=== PATIENT | male | born 1960 | race Caucasian/White ===

== ENCOUNTER 2022-10-19 16:37 | Inpatient (IN) | payer OTHER ==
[2022-10-19] MEDS ORDERED: IPRATROPIUM-ALBUTEROL 3 ML NEB INHALATION STA (16:53)
--- NOTE | 2022-10-19 17:00 | ED ---
SOB HPI - General Chief Complaint: Shortness of Breath Stated Complaint: SOB Time Seen by Provider: 10/19/22 16:44 Source: patient, RN notes reviewed Mode of arrival: ambulatory Limitations: no limitations - History of Present Illness Initial Comments: This is a 62-year-old male who presents to the emergency department for difficulty breathing. Patient states that he started to notice problems with this about a year ago, however they were not severe. He also noticed that the difficulty breathing would become severe with exertion. 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 He did start to use an ckyq-hyd-twfatfx Primatene inhaler, which he found beneficial. He quit smoking cold turkey in March. He had previously been smoking 2 packs a day for 40 years. He then started to noticed that the shortness of breath started to increase when he was sleeping. He would have to wake up in the middle of the night and use the Primatene inhaler. Over the last 3 weeks, it has gotten much worse and he is waking up several times each night. Last night was the worst night yet, prompting him to come to the emergency department today. He is waking up almost every hour to use the Primatene inhaler. Denies any chest pain. He did start smoking again yesterday. Breathing is much worse when laying flat, and he has to sit up when he is sleeping. He is not on oxygen at home, however he was put on oxygen in triage for low oxygen saturation. Denies any associated chest pain. He does have minor coughing. States that when he uses the Primatene inhaler, he feels like he can take a deeper breath in, however he cannot blow it out. Denies any weight gain or swelling in any of the extremities. He is never been officially diagnosed with COPD, but believes that he probably has it. Denies any fevers, chills, sore throat, chest pain, palpitations, abdominal pain, nausea, vomiting, diarrhea, back pain, or headaches. MD Complaint: shortness of breath, cough Onset/Timin -: week(s) Treatments Prior to Arrival: none - Related Data Home Oxygen Therapy: No Home Medications Medication Instructions Recorded Confirmed Aspirin EC [Ecotrin Low Dose] 81 mg PO DAILY 10/19/22 10/19/22 Previous Rx's Medication Instructions Recorded Ibuprofen [Motrin] 800 mg PO Q6HR PRN #30 tab 11/26/13 Allergies Allergy/AdvReac Type Severity Reaction Status Date / Time No Known Allergies Allergy Verified 10/19/22 19:27 Review of Systems ROS Statement: Those systems with pertinent positive or pertinent negative responses have been documented in the HPI. ROS Other: All systems not noted in ROS Statement are negative. Past Medical History Past Medical History: No Reported History History of Any Multi-Drug Resistant Organisms: None Reported Past Surgical History: Appendectomy Past Psychological History: No Psychological Hx Reported Smoking Status: Current every day smoker Past Alcohol Use History: None Reported Past Drug Use History: None Reported General Exam Limitations: no limitations General appearance: alert, in no apparent distress Head exam: Present: atraumatic, normocephalic, normal inspection Respiratory exam: Present: wheezes, decreased breath sounds, prolonged expiratory Cardiovascular Exam: Present: normal rhythm, tachycardia GI/Abdominal exam: Present: soft, normal bowel sounds. Absent: distended, te nderness, guarding, rebound, rigid Extremities exam: Absent: pedal edema Neurological exam: Present: alert, oriented X3, CN II-XII intact Psychiatric exam: Present: normal affect, normal mood Skin exam: Present: warm, dry, intact, normal color. Absent: rash Course Vital Signs 10/19/22 10/19/22 10/19/22 16:39 17:49 17:54 Temperature 97.6 F 98.5 F Pulse Rate 122 H 112 H 112 H Respiratory 28 H 22 Rate Blood Pressure 200/117 170/115 O2 Sat by Pulse 91 L 94 L Oximetry 10/19/22 10/19/22 17:59 19:19 Temperature Pulse Rate 116 H 103 H Respiratory 21 Rate Blood Pressure 164/110 O2 Sat by Pulse 91 L Oximetry Medical Decision Making - Medical Decision Making This is a 62-year-old male who presents to the emergency department for difficulty breathing. Was pt. sent in by a medical professional or institution? @ -No Did you speak to anyone other than the patient for history? @ -His daughter Did you review nursing and triage notes? @ -Yes, and I agree, it is accurate with regards to the patient's symptoms. Were old charts reviewed? @ -No Differential Diagnosis? @ -Differential Dyspnea: Coronary syndrome, arrhythmia, tamponade, asthma, COPD, pulmonary embolism, pneumonia, pneumothorax, pulmonary effusion, anaphylaxis, diabetic ketoacidosis, flailed chest, pulmonary contusion, diaphragmatic rupture, anemia, neuromuscular, this is not meant to be an all-inclusive list. EKG interpreted by me (3pts min.)? @ -Sinus tachycardia. Left bundle branch block. Ventricular rate 114 bpm, ID interval 129 ms, QRS duration 165 ms, QTC 438 ms. X-rays interpreted by me (1pt min.)? @ -Chest x-ray obtained, my interpretation identifies no localized consolidations or infiltrates. There is interstitial prominence. What testing was considered but not performed? (CT, X-rays, U/S, labs)? Why? @ -None What meds were considered but not given? Why? @ -None Did you discuss the management of the patient with other professionals? @ -Yes, Dr. Doss who accepts the patient for admission. Did you reconcile home meds? @ -Yes Was smoking cessation discussed for >3mins.? @ -I discussed smoking cessation for greater than 3 minutes. The risk of smoking were discussed with the patient including but not limited to risks of cancer, stroke, coronary artery disease and COPD. Also discussed with patient were multiple methods of quitting smoking. Lastly we discussed the financial cost of smoking. Was critical care preformed (if so, how long)? @ -No Were there social determinants of health that impacted care today? How? (Homelessness, low income, unemployed, alcoholism, drug addiction, transportation, low edu. Level, literacy, decrease access to med. care, custodial, rehab)? @ -Yes, patient does not have medical insurance, which has been decreasing his access to healthcare over the last couple of years and made him very hesitant to come to the hospital today. Was there de-escalation of care discussed even if they declined? (Discuss DNR or withdrawal of care, Hospice)? @ -No What co-morbidities impacted this encounter? (DM, HTN, Smoking, COPD, CAD, Cancer, CVA, Hep., AIDS, mental health diagnosis, sleep apnea, morbid obesity)? @ -Smoking Was patient admitted / discharged? @ -Admitted. Lab work obtained and found to be nonactionable. Patient placed on 4 L of oxygen via nasal cannula for low oxygen saturation in triage. In triage, the patient had an oxygen saturation in the high 80s to 90% on room air. While on 4 L, he was maintaining an oxygen saturation of 92-94%. Chest x-ray consistent with chronic changes such as COPD. Patient given a DuoNeb breathing treatment with no improvement in symptoms. Patient likely has a long-standing history of COPD or other chronic lung disease that has gone untreated for quite some time. Patient admitted to medicine for further management and pulmonology consultation. Patient does voice concern over not having insurance. Social work consult placed to discuss this with the patient. Undiagnosed new problem with uncertain prognosis? @ -None Drug Therapy requiring intensive monitoring for toxicity (Heparin, Nitro, Insulin, Cardizem)? @ -None Were any procedures done? @ -None Diagnosis/symptom? @ -Dyspnea, COPD Acute, or Chronic, or Acute on Chronic? @ -Acute Uncomplicated (without systemic symptoms) or Complicated (systemic symptoms)? @ -Complicated Side effects of treatment? @ -None Exacerbation, Progression, or Severe Exacerbation] @ -Not applicable Poses a threat to life or bodily function? @ -Yes This case was discussed in detail with the attending ED physician, Dr. Valdez. Presentation, findings, and treatment plan discussed in detail as well. - Lab Data Result diagrams: 10/19/22 17:20 10/19/22 17:20 Lab Results 10/19/22 10/19/22 10/19/22 Range/Units 17:20 17:20 17:20 WBC 9.3 (3.8-10.6) k/uL RBC 5.02 (4.30-5.90) m/uL Hgb 15.8 (13.0-17.5) gm/dL Hct 45.3 (39.0-53.0) % MCV 90.3 (80.0-100.0) fL MCH 31.5 (25.0-35.0) pg MCHC 34.9 (31.0-37.0) g/dL RDW 12.6 (11.5-15.5) % Plt Count 258 (150-450) k/uL MPV 7.9 Neutrophils % 58 % Lymphocytes % 23 % Monocytes % 6 % Eosinophils % 10 % Basophils % 1 % Neutrophils # 5.4 (1.3-7.7) k/uL Lymphocytes # 2.1 (1.0-4.8) k/uL Monocytes # 0.6 (0-1.0) k/uL Eosinophils # 1.0 H (0-0.7) k/uL Basophils # 0.1 (0-0.2) k/uL PT 11.2 (9.0-12.0) sec INR 1.1 (<1.2) APTT 23.1 (22.0-30.0) sec D-Dimer 0.30 (<0.60) mg/L FEU VBG pH (7.31-7.41) VBG pCO2 (37-51) mmHg VBG HCO3 (24-28) mmol/L Sodium 139 (137-145) mmol/L Potassium 4.1 (3.5-5.1) mmol/L Chloride 100 (98-107) mmol/L Carbon Dioxide 33 H (22-30) mmol/L Anion Gap 6 mmol/L BUN 16 (9-20) mg/dL Creatinine 0.81 (0.66-1.25) mg/dL Est GFR (CKD-EPI)AfAm >90 (>60 ml/min/1.73 sqM) Est GFR (CKD-EPI)NonAf >90 (>60 ml/min/1.73 sqM) Glucose 119 H (74-99) mg/dL Plasma Lactic Acid Fabricio (0.7-2.0) mmol/L Calcium 9.0 (8.4-10.2) mg/dL Total Bilirubin 0.7 (0.2-1.3) mg/dL AST 22 (17-59) U/L ALT 18 (4-49) U/L Alkaline Phosphatase 70 (38-126) U/L Troponin I (0.000-0.034) ng/mL NT-Pro-B Natriuret Pep pg/mL Total Protein 7.7 (6.3-8.2) g/dL Albumin 4.2 (3.5-5.0) g/dL 10/19/22 10/19/22 10/19/22 Range/Units 17:20 17:20 17:20 WBC (3.8-10.6) k/uL RBC (4.30-5.90) m/uL Hgb (13.0-17.5) gm/dL Hct (39.0-53.0) % MCV (80.0-100.0) fL MCH (25.0-35.0) pg MCHC (31.0-37.0) g/dL RDW (11.5-15.5) % Plt Count (150-450) k/uL MPV Neutrophils % % Lymphocytes % % Monocytes % % Eosinophils % % Basophils % % Neutrophils # (1.3-7.7) k/uL Lymphocytes # (1.0-4.8) k/uL Monocytes # (0-1.0) k/uL Eosinophils # (0-0.7) k/uL Basophils # (0-0.2) k/uL PT (9.0-12.0) sec INR (<1.2) APTT (22.0-30.0) sec D-Dimer (<0.60) mg/L FEU VBG pH (7.31-7.41) VBG pCO2 (37-51) mmHg VBG HCO3 (24-28) mmol/L Sodium (137-145) mmol/L Potassium (3.5-5.1) mmol/L Chloride (98-107) mmol/L Carbon Dioxide (22-30) mmol/L Anion Gap mmol/L BUN (9-20) mg/dL Creatinine (0.66-1.25) mg/dL Est GFR (CKD-EPI)AfAm (>60 ml/min/1.73 sqM) Est GFR (CKD-EPI)NonAf (>60 ml/min/1.73 sqM) Glucose (74-99) mg/dL Plasma Lactic Acid Fabricio 1.0 (0.7-2.0) mmol/L Calcium (8.4-10.2) mg/dL Total Bilirubin (0.2-1.3) mg/dL AST (17-59) U/L ALT (4-49) U/L Alkaline Phosphatase (38-126) U/L Troponin I 0.013 (0.000-0.034) ng/mL NT-Pro-B Natriuret Pep 770 pg/mL Total Protein (6.3-8.2) g/dL Albumin (3.5-5.0) g/dL 10/19/22 Range/Units 17:20 WBC (3.8-10.6) k/uL RBC (4.30-5.90) m/uL Hgb (13.0-17.5) gm/dL Hct (39.0-53.0) % MCV (80.0-100.0) fL MCH (25.0-35.0) pg MCHC (31.0-37.0) g/dL RDW (11.5-15.5) % Plt Count (150-450) k/uL MPV Neutrophils % % Lymphocytes % % Monocytes % % Eosinophils % % Basophils % % Neutrophils # (1.3-7.7) k/uL Lymphocytes # (1.0-4.8) k/uL Monocytes # (0-1.0) k/uL Eosinophils # (0-0.7) k/uL Basophils # (0-0.2) k/uL PT (9.0-12.0) sec INR (<1.2) APTT (22.0-30.0) sec D-Dimer (<0.60) mg/L FEU VBG pH 7.35 (7.31-7.41) VBG pCO2 61 H (37-51) mmHg VBG HCO3 32 H (24-28) mmol/L Sodium (137-145) mmol/L Potassium (3.5-5.1) mmol/L Chloride (98-107) mmol/L Carbon Dioxide (22-30) mmol/L Anion Gap mmol/L BUN (9-20) mg/dL Creatinine (0.66-1.25) mg/dL Est GFR (CKD-EPI)AfAm (>60 ml/min/1.73 sqM) Est GFR (CKD-EPI)NonAf (>60 ml/min/1.73 sqM) Glucose (74-99) mg/dL Plasma Lactic Acid Fabricio (0.7-2.0) mmol/L Calcium (8.4-10.2) mg/dL Total Bilirubin (0.2-1.3) mg/dL AST (17-59) U/L ALT (4-49) U/L Alkaline Phosphatase (38-126) U/L Troponin I (0.000-0.034) ng/mL NT-Pro-B Natriuret Pep pg/mL Total Protein (6.3-8.2) g/dL Albumin (3.5-5.0) g/dL - Radiology Data Radiology results: report reviewed, image reviewed Disposition Clinical Impression: Shortness of breath, COPD with exacerbation Disposition: ADMITTED IP TO THIS HOSP
[2022-10-19 17:32] LABS: Basophils # (A) 0.1 k/uL (0-0.2); Basophils % (A) 1 %; Eosinophils % (A) 10 %; HCT 45.3 % (39.0-53.0); HGB 15.8 gm/dL (13.0-17.5); Lymphocytes # (A) 2.1 k/uL (1.0-4.8); Lymphocytes % (A) 23 %; MCH 31.5 pg (25.0-35.0); MCHC 34.9 g/dL (31.0-37.0); MCV 90.3 fL (80.0-100.0); Mean Platelet Volume 7.9; Monocytes # (A) 0.6 k/uL (0-1.0); Monocytes % (A) 6 %; Neutrophils # (A) 5.4 k/uL (1.3-7.7); Neutrophils % (A) 58 %; Platelet Count 258 k/uL (150-450); RBC 5.02 m/uL (4.30-5.90); RDW 12.6 % (11.5-15.5); WBC 9.3 k/uL (3.8-10.6)
[2022-10-19 17:37] LABS: VBG PH 7.35 (7.31-7.41)
--- NOTE | 2022-10-19 17:37 | XR ---
EXAMINATION TYPE: XR chest 2V DATE OF EXAM: 10/19/2022 COMPARISON: NONE HISTORY: Difficulty breathing TECHNIQUE: Frontal and lateral views of the chest are obtained. FINDINGS: There is diffuse interstitial prominence which could reflect chronic interstitial changes. Findings m ight be related to COPD. There is no airspace consolidative opacity. There is no pneumothorax or large pleural effusion. Heart and pulmonary vasculature are within normal limits. The osseous structures are intact. IMPRESSION: 1. Diffuse interstitial prominence which could reflect chronic interstitial changes. There is no prio r study for comparison. Clinical correlation is recommended. 2. No definite acute cardiopulmonary disease.
[2022-10-19 17:41] LABS: ALT 18 U/L (4-49); AST 22 U/L (17-59); African American GFR (CKD) >90 (>60 ml/min/1.73 sqM); Albumin 4.2 g/dL (3.5-5.0); Alkaline Phosphatase 70 U/L (38-126); Anion Gap 6 mmol/L; Blood Urea Nitrogen 16 mg/dL (9-20); Carbon Dioxide 33 mmol/L (22-30); Chloride 100 mmol/L (98-107); Glucose 119 mg/dL (74-99); Non-African American GFR(CKD) >90 (>60 ml/min/1.73 sqM); Potassium 4.1 mmol/L (3.5-5.1); Sodium 139 mmol/L (137-145); Total Bilirubin 0.7 mg/dL (0.2-1.3); Total Protein 7.7 g/dL (6.3-8.2)
[2022-10-19 17:46] LABS: INR 1.1 (<1.2); Partial Thromboplastin Time 23.1 sec (22.0-30.0); Prothrombin Time 11.2 sec (9.0-12.0)
[2022-10-19] MEDS ORDERED: HYDROcodone/APAP 5-325MG 1 EACH TAB PO PRN (18:55)
[2022-10-19] MEDS ORDERED: KETOROLAC 15 MG/ML 1 ML VIAL IVP PRN (18:55)
[2022-10-19] MEDS ORDERED: NALOXONE 0.4 MG/ML 1 ML VIAL IV PRN (18:55)
[2022-10-19] MEDS ORDERED: ACETAMINOPHEN TAB 325 MG TAB PO PRN (18:55)
[2022-10-19] MEDS ORDERED: ONDANSETRON 4 MG/2 ML VIAL IVP PRN (18:55)
[2022-10-19] MEDS ORDERED: IBUPROFEN 400 MG TAB PO PRN (18:55)
[2022-10-19] MEDS ORDERED: LABETALOL 5 MG/ML VIAL MDV IVP STA (20:41)
[2022-10-19] MEDS ORDERED: ALBUTEROL NEBULIZED 2.5 MG/3 ML INHALATION STA (22:45)
[2022-10-19] MEDS ORDERED: ALBUTEROL NEBULIZED 2.5 MG/3 ML INHALATION PRN ×2 (23:31→23:38)
[2022-10-20] MEDS ORDERED: IPRATROPIUM 0.5 MG/2.5 ML NEBU INHALATION PRN (05:06)
[2022-10-20] MEDS ORDERED: ALBUTEROL NEBULIZED 2.5 MG/3 ML INHALATION PRN (05:12)
--- NOTE | 2022-10-20 05:12 | P.CNPUL ---
History of Present Illness Consult date: 10/20/22 Requesting physician: Zulma Harrison Reason for consult: dyspnea Chief complaint: Shortness of breath History of present illness: I am seeing this patient in new consultation today 10/20/2022 for progressive shortness of breath. This is a pleasant 62-year-old white male without any significant past medical history. Patient has not been to a doctor since he was a child. He does have a significant smoking history of 2 packs per day for almost 40 years. He quit 6 months ago. 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 Patient gets severely short of breath with any activity. He also has an occasional intermittent productive cough, but nothing currently. He denies any fevers, sore throat, headaches, chest pain, hemoptysis. He has been managing his symptoms with an svjc-tud-bdzykxe Primatene inhaler. He is using this multiple times per day. Which has caused side effects such as insomnia. He is currently resting in bed, on 2 L nasal cannula, in no acute distress. He has audible wheezes. ABG on arrival showed a pH 7.35, pCO2 61. Chest x-ray on arrival showed no acute cardiopulmonary process. Patient was negative for influenza, RSV, COVID-19. CBC was essentially normal. Troponin negative 1 and BNP was low at 770. D- dimer was low. BMP shows a sodium 139, potassium 4.1, chloride 100, serum CO2 33, BUN 16, creatinine 0.18, glucose 119. Vital signs are stable. Review of Systems REVIEW OF SYSTEMS: CONSTITUTIONAL: Denies any recent significant weight loss or weight gain. EYES: Denies change in vision. EARS, NOSE, MOUTH, THROAT: Denies headaches, denies sore throat. CARDIOVASCULAR: Denies chest pain, palpitations or syncopal episodes. RESPIRATORY: See HPI GASTROINTESTINAL: Denies change in appetite, abdominal pain, nausea and vomiting, or diarrhea GENITOURINARY: Denies hematuria, denies infections. MUSKULOSKELETAL: Denies pain, denies swelling. INTEGUMENTARY: Denies rash, denies eczema. NEUROLOGICAL: Denies recent memory loss, no recent seizure activity. PSYCHIATRIC: Denies anxiety, denies depression. HEMATOLOGIC/LYMPHATIC: Denies anemia, denies enlarged lymph node Past Medical History Past Medical History: No Reported History Additional Past Medical History / Comment(s): Kidney stone in 2014 History of Any Multi-Drug Resistant Organisms: None Reported Past Surgical History: Appendectomy Past Psychological History: No Psychological Hx Reported Smoking Status: Current every day smoker Past Alcohol Use History: None Reported Past Drug Use History: None Reported Medications and Allergies Home Medications Medication Instructions Recorded Confirmed Type Ibuprofen [Motrin] 800 mg PO Q6HR PRN #30 tab 11/26/13 10/19/22 Rx Aspirin EC [Ecotrin Low Dose] 81 mg PO DAILY 10/19/22 10/19/22 History Allergies Allergy/AdvReac Type Severity Reaction Status Date / Time No Known Allergies Allergy Verified 10/19/22 19:27 Physical Exam Vitals: Vital Signs Temp Pulse Resp BP Pulse Ox 10/20/22 04:00 67 22 131/85 92 L 10/20/22 03:04 84 10/20/22 03:00 85 20 101/76 92 L 10/20/22 02:56 81 10/20/22 02:00 66 20 90 L 10/19/22 23:56 87 20 88 L 10/19/22 23:43 97.7 F 85 22 117/85 90 L 10/19/22 23:17 87 10/19/22 23:03 86 10/19/22 22:51 83 21 148/94 91 L 10/19/22 22:00 82 22 91 L 10/19/22 21:57 87 22 162/106 90 L 10/19/22 20:45 97.9 F 98 20 164/104 93 L 10/19/22 19:19 103 H 21 164/110 91 L 10/19/22 17:59 116 H 10/19/22 17:54 112 H 10/19/22 17:49 98.5 F 112 H 22 170/115 94 L 10/19/22 16:39 97.6 F 122 H 28 H 200/117 91 L Intake and Output 10/19/22 10/19/22 10/20/22 14:59 22:59 06:59 Other: Weight 95.254 kg GENERAL EXAM: Alert, 62-year-old white male, comfortable in no apparent distress. HEAD: Normocephalic and atraumatic EYES: Normal reaction of pupils, equal size. NOSE: Clear with pink turbinates. THROAT: No erythema or exudates. NECK: No masses, no JVD. CHEST: No chest wall deformity. LUNGS: Equal air entry with expiratory wheezes throughout. no crackles, rhonchi or dullness. On 2 L nasal cannula. No conversational dyspnea or accessory muscle use.. CVS: S1 and S2 normal with no audible murmur, regular rhythm. No extra heart sounds ABDOMEN: No hepatosplenomegaly, active bowel sounds, no guarding or rigidity. SPINE: No scoliosis or deformity SKIN: No rashes CENTRAL NERVOUS SYSTEM: No focal deficits, tone is normal in all 4 extremities. EXTREMITIES: There is no peripheral edema, clubbing, or cyanosis. Peripheral pulses are intact. Results - Laboratory Findings CBC and BMP: 10/19/22 17:20 10/19/22 17:20 PT/INR, D-dimer PT 11.2 sec (9.0-12.0) 10/19/22 17:20 INR 1.1 (<1.2) 10/19/22 17:20 D-Dimer 0.30 mg/L FEU (<0.60) 10/19/22 17:20 Abnormal lab findings: Abnormal Labs 10/19/22 10/19/22 04 17:20 17:20 17:20 Eosinophils # 1.0 H VBG pCO2 61 H VBG HCO3 32 H Carbon Dioxide 33 H Glucose 119 H - Diagnostic Findings Chest x-ray: image reviewed Assessment and Plan Assessment: Probable acute exacerbation of COPD. no obvious infectious process identified. Acute hypoxemic and hypercapnic respiratory failure. Currently on 3 L nasal cannula Plan: Patient's medications, labs, chest x-ray reviewed This is most likely a new diagnosis of COPD. Continue supplemental oxygen to maintain oxygen saturation 92-94% Patient educated on stopping his bvcf-lay-fsroetf Primatene inhaler Will start patient on DuoNeb inhalations Start patient on Symbicort inhaler Start patient on high-dose Solu-Medrol Patient will have to follow up outpatient for a PFT Smoking cessation education provided We will continue to follow I have personally seen and examined the patient, performed the documentation and the assessment and plan as written. Number of minutes spent on the visit:20 Time with Patient: Greater than 30
[2022-10-20] MEDS: methylPREDNISolone SOD SUCCI 125 MG/2 ML VIAL IV SCH ×3 (05:45→18:02)
[2022-10-20] MEDS: ALBUTEROL NEBULIZED 2.5 MG/3 ML INHALATION SCH ×4 (07:40→19:33)
[2022-10-20] MEDS: IPRATROPIUM 0.5 MG/2.5 ML NEBU INHALATION SCH ×4 (07:40→19:33)
[2022-10-20] MEDS: SYMBICORT 160-4.5 MCG INHALER INHALATION SCH ×2 (07:40→19:37)
[2022-10-20] MEDS: DOXYCYCLINE 100 MG CAP PO SCH ×2 (10:24→22:05)
[2022-10-20] MEDS ORDERED: TEMAZEPAM 15 MG CAP PO PRN (14:13)
--- NOTE | 2022-10-20 16:17 | CONS ---
CONSULTATION REASON FOR CONSULTATION: The consult is regarding left bundle-branch block pattern. HISTORY OF PRESENT ILLNESS: This is a gentleman, 62 years of age, who is hard of hearing, came into the emergency room with shortness of breath. Apparently, there is progressive increase in shortness of breath. 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 He used to take some vvqr-wwa-fvtgnzz inhalers. After arrival, he was found to be in what seemed to be an exacerbation of COPD, and an EKG was performed, revealed left bundle-branch block pattern. He has quit smoking 6 months ago but no complaints of feeling feverish and having shortness of breath, and also, he has been having some cough as well. He is unable to blow all the air out. He is not on any medications. He has no previous EKG. He has no allergies. He does not have any history of previous hospitalizations. He has no hypertension, diabetes, myocardial infarction, or CVA. He is a smoker and has smoked up until 6 months ago quite heavily. Pulmonary was also involved in his care. PHYSICAL EXAMINATION: VITAL SIGNS: Blood pressure is 150/80, pulse rate is about 108 per minute and regular. HEENT: Unremarkable. Fundus was not examined by me. NECK: Supple. There is JVD of 1 cm. No carotid bruit. HEART: Reveals S1 and S2 distant. Heart sounds not easily audible. LUNGS: Reveal diminished air entry. Mild rhonchi. ABDOMEN: Soft and distended. EXTREMITIES: Lower extremities reveal diminished pulses. CENTRAL NERVOUS SYSTEM: Normal. DIAGNOSTIC STUDIES: EKG revealed sinus mechanism, left bundle. IMPRESSION: 1. Exacerbation of chronic obstructive pulmonary disease. 2. Rule out any underlying bronchial asthma. 3. History of left bundle-branch block pattern. This is the first EKG that is available, so I am assuming it is not a new finding. It may have been there and not just discovered. 4. History of hypertension. 5. History of smoking, which he quit 6 months ago. RECOMMENDATIONS: I am recommending an echocardiogram to assess LV function and right-sided pressures. I will add a small dose of beta-kalani and await further input from Pulmonary. I will also put him on a small dose of metoprolol tartrate 25 mg b.i.d., check a TSH level, and also obtain echocardiogram. Based on these findings, I will make further recommendations. Thank you very much for the consult. ILSA / ARIELN: [id number] /
[2022-10-20] MEDS: METOPROLOL TARTRATE 25 MG TAB PO SCH (21:00)
[2022-10-21] MEDS: methylPREDNISolone SOD SUCCI 125 MG/2 ML VIAL IV SCH ×3 (00:26→12:43)
--- NOTE | 2022-10-21 01:11 | HP ---
HISTORY AND PHYSICAL CHIEF COMPLAINT: Shortness of breath. HISTORY OF PRESENT ILLNESS: This 62-year-old gentleman with a past medical history of multiple medical problems was admitted with shortness of breath. The patient was thought to have COPD exacerbation. The patient will be closely monitored at this time. There is no history of fever, rigors, or chills at this time. PAST MEDICAL HISTORY: Reviewed, include nephrolithiasis. The rest of history and rest of the chart is also reviewed. HOME MEDICATIONS: Aspirin, dose and rest of medication noted. ALLERGIES: None. FAMILY HISTORY: No history of heart disease or strokes in the family. SOCIAL HISTORY: Current smoking. REVIEW OF SYSTEMS: Fourteen-point review is negative except as mentioned earlier. PHYSICAL EXAMINATION: VITAL SIGNS: Pulse is 104, blood pressure 115/87, respiration 18. HEENT: Conjunctivae normal. NECK: No jugular venous distention. CARDIOVASCULAR: S1, S2 muffled. RESPIRATIONS: Bilateral scattered rhonchi and crackles. Expiratory wheezing also present. ABDOMEN: Soft, nontender. LEGS: No edema. No swelling. NERVOUS SYSTEM: No focal deficits. SKIN: No ulcer, rash, bleeding. JOINTS: No active deforming arthropathy. LABORATORY DATA: Reviewed. DIAGNOSTIC DATA: X-rays reviewed personally. ASSESSMENT: 1. Chronic obstructive pulmonary disease acute exacerbation with acute purulent tracheobronchitis. 2. Chronic interstitial changes in the chest x-ray. 3. Nephrolithiasis. 4. History of continued ongoing nicotine dependence. RECOMMENDATIONS: Recommend to continue current management. Continue with IV steroids. Continue with the bronchodilators. Follow up closely with Pulmonary. Increase ambulation. Guarded prognosis. Further recommendations to follow. MMODL / IJN: [id number] /
[2022-10-21] MEDS: DOXYCYCLINE 100 MG CAP PO SCH (08:17)
[2022-10-21] MEDS: METOPROLOL TARTRATE 25 MG TAB PO SCH (08:17)
[2022-10-21] MEDS: IPRATROPIUM 0.5 MG/2.5 ML NEBU INHALATION SCH ×3 (08:32→15:23)
[2022-10-21] MEDS: ALBUTEROL NEBULIZED 2.5 MG/3 ML INHALATION SCH ×3 (08:32→15:23)
[2022-10-21] MEDS: SYMBICORT 160-4.5 MCG INHALER INHALATION SCH (08:32)
--- NOTE | 2022-10-21 09:35 | CA ---
Transthoracic Echo Report Name: Rashid Crawford Age: 62 Gender: M : 1960 Exam Date: 10/21/2022 07:31 Exam Location: [facility] Ht (in): 68 Wt (lb): 210 Ordering Physician: Madison Pelaez MD ([id number]) Attending/Referring Phys: Translator And Interpreter Satya Mckeon RDCS Procedure CPT: Indications: LV function Cardiac Hx: Technical Quality: Fair Contrast 1: Total Dose (mL): Contrast 2: Total Dose (mL): MEASUREMENTS (Male / Female) Normal Values 2D ECHO LV Diastolic Diameter PLAX 4.5 cm 4.2 - 5.9 / 3.9 - 5.3 cm LV Systolic Diameter PLAX 3.4 cm LV Fractional Shortening PLAX 23.9 % IVS Diastolic Thickness 1.1 cm 0.6 - 1.0 / 0.6 - 0.9 cm LVPW Diastolic Thickness 1.6 cm 0.6 - 1.0 / 0.6 - 0.9 cm LV Relative Wall Thickness 0.6 M-MODE Aortic Root Diameter MM 2.9 cm AV Cusp Separation MM 2.0 cm DOPPLER AV Peak Velocity 163.4 cm/s AV Peak Gradient 10.7 mmHg LVOT Peak Velocity 114.6 cm/s LVOT Peak Gradient 5.3 mmHg MR Peak Velocity 325.8 cm/s MR Peak Gradient 42.5 mmHg Mitral E Point Velocity 67.7 cm/s Mitral A Point Velocity 98.8 cm/s Mitral E to A Ratio 0.7 MV Deceleration Time 173.6 ms MV E' Velocity 4.9 cm/s Mitral E to MV E' Ratio 13.7 Right Atrial Pressure 8.0 mmHg FINDINGS Left Ventricle Left ventricular cavity size normal. Left ventricular wall thickness normal. Grade 1 diastolic dysfunction. Left ventricular ejection fraction is estimated at 45-50 %. Dyskinetic septal wall could be related to left bundle branch block. Right Ventricle Normal right ventricular size. Right Atrium Normal right atrial size. Left Atrium Normal left atrial size. Mitral Valve Mild mitral regurgitation. Aortic Valve Trileaflet aortic valve. No aortic regurgitation. No aortic stenosis. Tricuspid Valve Structurally normal tricuspid valve. No tricuspid regurgitation. Pulmonic Valve Pulmonic valve not well visualized. Pericardium No pericardial or pleural effusion. Aorta Normal size aortic root and proximal ascending aorta. CONCLUSIONS LV size is normal septal hypokinesia to dyskinesia could be related to underlying left bundle branch block. Doppler study did not reveal any significant abnormality. Mild mitral and tricuspid regurgitation. Right-sided pressures are not well quantified no pericardial effusion Previewed by: Dr. Madison Pelaez MD (Electronically Signed) Final Date: 21 October 2022 09:34
--- NOTE | 2022-10-21 10:13 | P.PN ---
Subjective Progress Note Date: 10/21/22 History of present illness: This is a 62-year-old male presented to the emergency center with shortness of breath that was progressive and increasing shortness of breath. 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 He used to take some [id number] inhalers. Patient was found to be in COPD exacerbation. EKG revealed left bundle branch block pattern. He quit smoking 6 months ago. No fevers, positive shortness of breath, positive cough. 10/21 Patient is seen today in follow-up on the observation unit. Patient is still tachycardic and did not really receive beta kalani due to parameters to hold if systolic less than 110. Patient has had one blood pressure reading of systolic 107 otherwise blood pressures have been stable and currently on 157/76. Patient states that his breathing is much improved from yesterday. TSH 0.375. Echocardiogram reveals EF of 45-50%, septal hypokinesia to dyskinesia could be related to underlying left bundle branch block. Doppler study did not reveal any significant abnormality. Mild mitral and tricuspid regurgitation. Right- sided pressures are not well quantified. No pericardial effusion. Physical examination: Gen: This is a 62-year-old male. He is resting in bed and appears to be comfortable and in no acute distress. VS: reviewed HEENT: Head is atraumatic, normocephalic. Pupils equal, round. Sclerae is anicteric. LUNGS: Diminished. No intercostal retractions. HEART: Regular rate and rhythm. No murmur. Distant heart sounds. ABDOMEN: Soft No tenderness. EXTREMITIES: No pedal edema. Decreased pulses bilaterally to the lower extremities NEUROLOGICAL: Patient is awake, alert and oriented x3. Assessment: COPD exacerbation Rule out underlying bronchial asthma History of left bundle branch block pattern Hypertension History of smoking quit 6 months ago Plan: Beta kalani now and parameter change to hold if systolic blood pressure less than 100. Continue Lopressor 25 mg twice daily Further recommendations to follow based upon clinical course Nurse practitioner note has been reviewed, I agree with documented findings and plan of care. Patient was seen and examined. Objective - Vital Signs Vital signs: Vital Signs Temp 97.4 F L 10/21/22 07:00 Pulse 88 10/21/22 08:55 Resp 18 10/21/22 07:00 BP 157/76 10/21/22 07:00 Pulse Ox 89 L 10/21/22 08:32 FiO2 21 10/21/22 08:32 Intake & Output 10/20/22 10/21/22 10/21/22 18:59 06:59 18:59 Intake Total 222 240 Balance 222 240 Weight 95.254 kg Intake: Oral 222 240 Other: # Voids 2 1 - Labs CBC & Chem 7: 10/19/22 17:20 10/19/22 17:20
--- NOTE | 2022-10-21 11:52 | P.PN ---
Subjective Progress Note Date: 10/21/22 I am seeing this patient in new consultation today 10/20/2022 for progressive shortness of breath. This is a pleasant 62-year-old white male without any significant past medical history. Patient has not been to a doctor since he was a child. He does have a significant smoking history of 2 packs per day for almost 40 years. He quit 6 months ago. 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 Patient gets severely short of breath with any activity. He also has an occasional intermittent productive cough, but nothing currently. He denies any fevers, sore throat, headaches, chest pain, hemoptysis. He has been managing his symptoms with an [id number]-oif-[id number] Primatene inhaler. He is using this multiple times per day. Which has caused side effects such as insomnia. He is currently resting in bed, on 2 L nasal cannula, in no acute distress. He has audible wheezes. ABG on ar rival showed a pH 7.35, pCO2 61. Chest x-ray on arrival showed no acute cardiopulmonary process. Patient was negative for influenza, RSV, COVID-19. CBC was essentially normal. Troponin negative 1 and BNP was low at 770. D- dimer was low. BMP shows a sodium 139, potassium 4.1, chloride 100, serum CO2 33, BUN 16, creatinine 0.18, glucose 119. Vital signs are stable. The patient is seen today 10/21/2022 in follow-up on the regular medical floor. He is currently sitting up at the bedside. Awake and alert in no acute distress. Feeling quite a bit better today compared to yesterday. He is anxious to go home. No worsening shortness of breath, cough or congestion. Less bronchospastic and wheezing. He is continued on Symbicort, albuterol, IV Solu-Medrol. No new labs today. Objective - Vital Signs Vital signs: Vital Signs Temp 97.4 F L 10/21/22 07:00 Pulse 84 10/21/22 11:26 Resp 18 10/21/22 07:00 BP 157/76 10/21/22 07:00 Pulse Ox 89 L 10/21/22 08:32 FiO2 21 10/21/22 08:32 Intake & Output 10/20/22 10/21/22 10/21/22 18:59 06:59 18:59 Intake Total 222 240 Balance 222 240 Weight 95.254 kg Intake: Oral 222 240 Other: # Voids 2 1 - Exam GENERAL EXAM: Alert, active, pleasant 62-year-old male, on room air, comfortable in no apparent distress. HEAD: Normocephalic. EYES: Normal reaction of pupils, equal size. NOSE: Clear with pink turbinates. THROAT: No erythema or exudates. NECK: No masses, no JVD. CHEST: No chest wall deformity. LUNGS: Equal air entry with no crackles, wheeze, rhonchi or dullness. Diminished. CVS: S1 and S2 normal with no audible murmur, regular rhythm. ABDOMEN: No hepatosplenomegaly, normal bowel sounds, no guarding or rigidity. SPINE: No scoliosis or deformity SKIN: No rashes CENTRAL NERVOUS SYSTEM: No focal deficits, tone is normal in all 4 extremities. EXTREMITIES: There is no peripheral edema. No clubbing, no cyanosis. Peripheral pulses are intact. - Labs CBC & Chem 7: 10/19/22 17:20 10/19/22 17:20 Assessment and Plan Assessment: Acute hypoxemic respiratory failure secondary to an acute exacerbation of suspected significant chronic obstructive pulmonary disease Previous heavy tobacco dependence of nearly 40 years, quit 6 months ago Plan: The patient was seen and evaluated Cleared for discharge from the pulmonary standpoint Assessment for possible home oxygen Continue prednisone taper starting at 40 mg daily for 4 Home on Symbicort, albuterol, DuoNeb inhalations Will need nebulizer Educated regarding the importance of continued smoking cessation Follow-up in our office in 1 week I have personally seen and examined the patient, performed the documentation and the assessment and plan as written. Number of minutes spent on the visit: 10.
[2022-10-21 14:26] VITALS: BP 114/68; RESP 20; TEMP 97.6
[2022-10-21 15:40] VITALS: PULSE 92
--- NOTE | 2022-10-21 20:23 | DS ---
DISCHARGE SUMMARY FINAL DIAGNOSES: 1. Chronic obstructive pulmonary disease acute exacerbation with acute ventricular bronchitis. 2. Chronic interstitial changes in the chest x-ray. 3. Nephrolithiasis. 4. History of continued ongoing nicotine dependence. DISCHARGE DISPOSITION: The patient will be discharged in a stable condition with guarded prognosis. Dr. Zuñiga cleared the patient. HISTORY OF PRESENT ILLNESS: This is a 62-year-old gentleman admitted with COPD acute exacerbation and tracheobronchitis. The patient improved significantly. Please refer to the previous notes and consultation for further details. PHYSICAL EXAMINATION: VITALS: Stable. CARDIOVASCULAR: S1, S2. RESPIRATIONS: A few scattered rhonchi. ABDOMEN: Soft, nontender. DISCHARGE MEDICATIONS: The patient will be discharged on DuoNeb, Symbicort. Taper antibiotics. See the discharge reconciliation sheet for list of medications. Follow up with tonya and Dr. Zuñiga as advised. MMODL / ARIELN: [id number] /
== END 2022-10-21 16:55 | disposition home or self-care (01) | DRG 140 ==
LOC: EC 16:37 → 6NMEDSUR 18:40 → OBSVTOIN 10-21 05:42
PROVIDERS: ADMIT Internal Medicine; ATTEND Internal Medicine
PROC: B246ZZ4 Ultrasonography of Right and Left Heart, Transesophageal (ICD-10-PCS; principal; 2022-10-21)
DX: J44.1 Chronic obstructive pulmonary disease with (acute) exacerbation (principal); J96.01 Acute respiratory failure with hypoxia; J96.02 Acute respiratory failure with hypercapnia; Z20.822 Contact with and (suspected) exposure to COVID-19; I10 Essential (primary) hypertension; I08.1 Rheumatic disorders of both mitral and tricuspid valves; J84.9 Interstitial pulmonary disease, unspecified; I44.7 Left bundle-branch block, unspecified; G47.00 Insomnia, unspecified; F17.210 Nicotine dependence, cigarettes, uncomplicated; Z87.442 Personal history of urinary calculi; Z79.82 Long term (current) use of aspirin
CPT/HCPCS: 36415; 71046; 80053; 82803; 83605; 83880; 84443; 84484; 85025; 85379; 85610; 85730; 87636; 93005; 93306; 94640; 94760; 96374; 96375; 99285

== ENCOUNTER 2023-07-03 21:50 | Emergency (ER) | payer OTHER ==
--- NOTE | 2023-07-03 23:08 | ED ---
Chest Pain HPI - General Chief Complaint: Chest Pain Stated Complaint: Chest pain Time Seen by Provider: 07/03/23 21:56 Source: patient, EMS Mode of arrival: EMS Limitations: no limitations - History of Present Illness Initial Comments: 62-year-old male with past medical history of COPD, coronary artery disease with stent placement who presents to the emergency department reporting high blood pressure and palpitations. States that over the past 36 hours he has had symptoms of racing heart. He checked his blood pressure at home and it was found to be over 200 systolic. He denies having any chest pain. No shortness of breath. He does take metoprolol 50 mg twice daily. States that he took an extra one around 3 PM and 5 PM because his blood pressure was so high. He called his daughter who then called for an ambulance. Upon EMS arrival they did find him to have significantly elevated blood pressure. They gave him 4 chewable aspirin and 2 nitro. Blood pressure improved significantly and patient did report to improvement in his symptoms. He denies any nausea or vomiting. No numbness, tingling or weakness in his extremities. No fevers. No other alleviating, precipitating or modifying factors - Related Data Home Medications Medication Instructions Recorded Confirmed Aspirin EC [Ecotrin Low Dose] 81 mg PO DAILY 10/19/22 10/19/22 Previous Rx's Medication Instructions Recorded Ibuprofen [Motrin] 800 mg PO Q6HR PRN #30 tab 11/26/13 Budesonide-Formot 160-4.5 Mcg 2 puff INHALATION BID 30 Days 10/21/22 [Symbicort 160-4.5 Mcg Inhaler] #10.2 gm Doxycycline [Vibramycin] 100 mg PO BID 3 Days #6 capsule 10/21/22 Ipratropium-Albuterol Nebulize 3 ml INHALATION QID 30 Days #90 10/21/22 [Duoneb 0.5 mg-3 mg/3 ml Soln] each Metoprolol Tartrate 25 mg PO BID 30 Days #60 tab 10/21/22 predniSONE 10 mg PO DIRECTED #30 tab 10/21/22 Allergies Allergy/AdvReac Type Severity Reaction Status Date / Time No Known Allergies Allergy Verified 07/03/23 21:55 Review of Systems ROS Statement: Those systems with pertinent positive or pertinent negative responses have been documented in the HPI. ROS Other: All systems not noted in ROS Statement are negative. Past Medical History Past Medical History: COPD, Hypertension Additional Past Medical History / Comment(s): Kidney stone in 2014 History of Any Multi-Drug Resistant Organisms: None Reported Past Surgical History: Appendectomy Past Psychological History: No Psychological Hx Reported Smoking Status: Current every day smoker Past Alcohol Use History: None Reported Past Drug Use History: None Reported General Exam Limitations: no limitations General appearance: alert, in no apparent distress Head exam: Present: atraumatic, normocephalic, normal inspection Eye exam: Present: normal appearance, PERRL, EOMI. Absent: scleral icterus, conjunctival injection, periorbital swelling ENT exam: Present: normal exam, mucous membranes moist Neck exam: Present: normal inspection. Absent: tenderness, meningismus, lymphadenopathy Respiratory exam: Present: normal lung sounds bilaterally. Absent: respiratory distress, wheezes, rales, rhonchi, stridor Cardiovascular Exam: Present: regular rate, normal rhythm, normal heart sounds. Absent: systolic murmur, diastolic murmur, rubs, gallop, clicks GI/Abdominal exam: Present: soft, normal bowel sounds. Absent: distended, tenderness, guarding, rebound, rigid Extremities exam: Present: normal inspection, full ROM, normal capillary refill. Absent: tenderness, pedal edema, joint swelling, calf tenderness Back exam: Present: normal inspection Neurological exam: Present: alert, oriented X3, CN II-XII intact Psychiatric exam: Present: normal affect, normal mood Skin exam: Present: warm, dry, intact, normal color. Absent: rash Course Vital Signs 07/03/23 07/03/23 07/03/23 21:51 21:58 22:00 Temperature 99.2 F Pulse Rate 79 77 77 Respiratory 22 16 17 Rate Blood Pressure 141/86 141/86 121/89 O2 Sat by Pulse 93 L 95 95 Oximetry 07/03/23 07/04/23 07/04/23 23:00 00:13 00:54 Temperature 98.9 F Pulse Rate 74 76 75 Respiratory 18 18 20 Rate Blood Pressure 122/78 123/65 O2 Sat by Pulse 95 95 Oximetry Chest Pain MDM - MDM Was pt. sent in by a medical professional or institution (, PA, RADIOCHEMICAL TECHNICIAN, urgent care, hospital, or assisted...) When possible be specific @ -No Did you speak to anyone other than the patient for history (EMS, parent, family, police, friend...)? What history was obtained from this source @ -EMS Did you review nursing and triage notes (agree or disagree)? Why? @ -I reviewed and agree with nursing and triage notes Were old charts reviewed (outside hosp., previous admission, EMS record, old EKG, old radiological studies, urgent care reports/EKG's, assisted records)? Report findings @ -No old charts were reviewed Differential Diagnosis (chest pain, altered mental status, abdominal pain women, abdominal pain men, vaginal bleeding, weakness, fever, dyspnea, syncope, headache, dizziness, GI bleed, back pain, seizure, CVA, palpatations, mental health, musculoskeletal)? @ -Differential Palpitations Ventricular arrhythmias, atrial arrhythmias, myocardial infarction, anemia, thyrotoxicosis, electrolyte imbalance, hypokalemia, pulmonary embolism, pulmonary disease, drugs, alcohol, anxiety, stress.... This is not meant to be an all-inclusive list. EKG interpreted by me (3pts min.). @ -EKG demonstrates sinus rhythm rate of 78. FL interval 140. QRS 170. QTC o f 464. Left bundle branch block. No ST segment elevation or depression X-rays interpreted by me (1pt min.). @ -Yes and demonstrates no acute process CT interpreted by me (1pt min.). @ -None done U/S interpreted by me (1pt. min.). @ -None done What testing was considered but not performed or refused? (CT, X-rays, U/S, labs)? Why? @ -None What meds were considered but not given or refused? Why? @ -None Did you discuss the management of the patient with other professionals (professionals i.e. , PA, RADIOCHEMICAL TECHNICIAN, lab, RT, psych nurse, elementary school social worker, facilities maintenance assistant, teacher, aviation ordnance officer, showcase trimmer)? Give summary @ -No Was smoking cessation discussed for >3mins.? @ -No Was critical care preformed (if so, how long)? @ -No Were there social determinants of health that impacted care today? How? (Homelessness, low income, unemployed, alcoholism, drug addiction, transportation, low edu. Level, literacy, decrease access to med. care, senior living, rehab)? @ -No Was there de-escalation of care discussed even if they declined (Discuss DNR or withdrawal of care, Hospice)? DNR status @ -No What co-morbidities impacted this encounter? (DM, HTN, Smoking, COPD, CAD, Cancer, CVA, ARF, Chemo, Hep., AIDS, mental health diagnosis, sleep apnea, morbid obesity)? @ -htn Was patient admitted / discharged? Hospital course, mention meds given and route, prescriptions, significant lab abnormalities, going to OR and other pertinent info. @ -Discharged. Upon arrival patient was placed into room 5. Thorough history and physical exam was performed. IV access was established. Laboratory studies were obtained. Patient placed on continuous pulse ox and cardiac monitoring. 12-lead EKG was performed. Results of the laboratory studies were discussed with the patient. He does continue to have normal blood pressures throughout his stay in the emergency department. I did discuss the diagnosis, differential and treatment options. I did offer hospitalization in order to trend the patient's blood pressure. Patient's is not agreeable to this. He would prefer to go home and follow up with his primary care doctor. He is adamantly denying that he ever had chest pain. I instructed to have the patient checked his blood pressure twice daily. Keep a log. Follow up with his primary care doctor. He may need further workup and medication adjustments if his blood pressure is going to continuously run high. He is to return for any new or worsening symptoms including chest pain. Patient was agreeable to this plan and was discharged in stable condition Undiagnosed new problem with uncertain prognosis? @ -No Drug Therapy requiring intensive monitoring for toxicity (Heparin, Nitro, Insulin, Cardizem)? @ -No Were any procedures done? @ -No Diagnosis/symptom? @ -acute palpitations, accelerated hypertension Acute, or Chronic, or Acute on Chronic? @ -Acute Uncomplicated (without systemic symptoms) or Complicated (systemic symptoms)? @ -Complicated Side effects of treatment? @ -No Exacerbation, Progression, or Severe Exacerbation? @ -No Poses a threat to life or bodily function? How? (Chest pain, [place], [place], pneumonia, PE, COPD, DKA, ARF, appy, cholecystitis, CVA, Diverticulitis, Homicidal, Suicidal, threat to staff... and all critical care pts) @ -No Disposition Clinical Impression: Accelerated hypertension Disposition: HOME SELF-CARE Condition: Stable Instructions (If sedation given, give patient instructions): Hypertension (ED) Additional Instructions: Please keep a log of your blood pressures twice per day. Take this log into your primary care office. Return for any new or worsening symptoms Is patient prescribed a controlled substance at d/c from ED?: No Referrals: Andre Garcia MD [Primary Care Provider] - 1-2 days Time of Disposition: 00:58
[2023-07-03 23:09] LABS: Basophils % (A) 0 %; Eosinophils # (A) 0.5 k/uL (0-0.7); Eosinophils % (A) 6 %; HGB 13.4 gm/dL (13.0-17.5); Lymphocytes % (A) 22 %; MCH 32.2 pg (25.0-35.0); MCHC 34.3 g/dL (31.0-37.0); MCV 93.9 fL (80.0-100.0); Mean Platelet Volume 8.2; Monocytes # (A) 0.4 k/uL (0-1.0); Monocytes % (A) 5 %; Neutrophils # (A) 6.1 k/uL (1.3-7.7); Neutrophils % (A) 66 %; Platelet Count 280 k/uL (150-450); RBC 4.15 m/uL (4.30-5.90); RDW 12.3 % (11.5-15.5); WBC 9.2 k/uL (3.8-10.6)
[2023-07-03 23:16] LABS: INR 1.2 (<1.2); Prothrombin Time 12.3 sec (10.0-12.5)
--- NOTE | 2023-07-03 23:21 | XR ---
EXAM: XR Chest, 2 Views CLINICAL HISTORY: ITS.REASON XR Reason: Chest Pain TECHNIQUE: Frontal and lateral views of the chest. COMPARISON: CXR November 04, 2022. FINDINGS: Lungs: Unremarkable. No consolidation. Pleural space: Unremarkable. No pneumothorax. Heart: Unremarkable. No cardiomegaly. Mediastinum: Unremarkable. Normal mediastinal contour. Bones/joints: Unremarkable. No acute fracture. IMPRESSION: No pneumonia.
[2023-07-03 23:28] LABS: ALT 16 U/L (4-49); AST 23 U/L (17-59); African American GFR (CKD) >90 (>60 ml/min/1.73 sqM); Albumin 3.7 g/dL (3.5-5.0); Alkaline Phosphatase 64 U/L (38-126); Anion Gap 11 mmol/L; Blood Urea Nitrogen 10 mg/dL (9-20); Calcium 8.6 mg/dL (8.4-10.2); Carbon Dioxide 22 mmol/L (22-30); Chloride 104 mmol/L (98-107); Glucose 97 mg/dL (74-99); Lipase 132 U/L (23-300); Magnesium 1.7 mg/dL (1.6-2.3); Non-African American GFR(CKD) >90 (>60 ml/min/1.73 sqM); Sodium 137 mmol/L (137-145); Total Bilirubin 0.8 mg/dL (0.2-1.3); Total Protein 6.8 g/dL (6.3-8.2)
[2023-07-03 23:36] LABS: NT-Pro-B-Type Natriuretic Pept 762 pg/mL
[2023-07-04] MEDS ORDERED: ALBUTEROL NEBULIZED 2.5 MG/3 ML INHALATION STA
[2023-07-04 02:44] VITALS: BP 123/65; PULSE 75; RESP 20; TEMP 98.9
== END 2023-07-04 01:10 | disposition home or self-care (01) ==
LOC: EC 21:50
DX: I10 Essential (primary) hypertension (principal); I44.7 Left bundle-branch block, unspecified; J44.9 Chronic obstructive pulmonary disease, unspecified; F17.200 Nicotine dependence, unspecified, uncomplicated; Z79.82 Long term (current) use of aspirin
CPT/HCPCS: 36415; 71046; 80053; 83690; 83735; 83880; 84484; 85025; 85610; 85730; 93005; 94640; 99285